=== PATIENT | male | born 1960 ===

== ENCOUNTER 2019-09-02 01:56 | Inpatient (IN) ==
[2019-09-02] MEDS ORDERED: ONDANSETRON 4 MG/2 ML VIAL IV PRN (08:49)
[2019-09-02] MEDS ORDERED: DOCUSATE SODIUM 100 MG CAPSULE PO PRN (08:49)
[2019-09-02] MEDS ORDERED: ACETAMINOPHEN 325 MG TABLET PO PRN (08:49)
[2019-09-02] MEDS ORDERED: GLUCAGON 1 MG VIAL IM PRN (08:49)
[2019-09-02] MEDS ORDERED: DEXTROSE 10% 250 ML BAG IV PRN (08:49)
[2019-09-02 10:05] LABS: Thyroid Stimulating Hormone 0.758 uIU/ml (0.358-3.74)
[2019-09-02] MEDS: PANTOPRAZOLE 40 MG TABLET PO SCH (10:21)
[2019-09-02] MEDS: ENOXAPARIN 40 MG/0.4 ML SYRINGE SUBCUT SCH (10:21)
[2019-09-02 11:31] LABS: Allen Test Positive
[2019-09-02 11:32] LABS: ABG Base Excess 0.5 MMOL/L (-2.5-2.5); ABG HCO3 24.7 MMOL/L (20-26); ABG Oxygen Saturation 92.7 % (95-100); ABG PCO2 38.4 MM HG (35-48); ABG PH 7.427 (7.35-7.45); ABG PO2 64.3 MM HG (80-95); ABG TCO2 25.9 MMOL/L (23-27)
[2019-09-02 11:42] LABS: Risk Ratio 6.22
[2019-09-02 12:15] LABS: Basophils % 0.4 % (0.0-0.8); Eosinophils # 0.1 10*3/uL (0.0-0.87); Eosinophils % 0.7 % (0.00-10.9); Hematocrit 39.3 VOL% (42.0-52.0); Hemoglobin 11.4 GM/DL (14.0-18.0); Immature Granulocytes % 0.6 %; Immature Granulocytes Absolute 0.06 #; Lymphocytes # 1.8 10*3/uL (1.4-4.0); Mean Corpuscular Volume 73.7 FL (87-102); Mean Platelet Volume 9.3 FL (9.6-12.0); Neutrophils % 69.3 % (38.7-73.9); Platelet Count 278 T/CUMM (130-400); Red Blood Count 5.33 MC/CUMM (3.8-5.5); Red Cell Distribution Width 16.3 % (9.3-17.3); White Blood Count 9.6 T/CUMM (4-12)
[2019-09-02 12:19] LABS: Bilirubin,Total 0.4 MG/DL (0.2-1.0); Calcium 8.1 MG/DL (8.5-10.1); Osmolality,Calculated 291.1 MOS/KG (273-304)
[2019-09-02 12:22] LABS: Troponin I 0.197 NG/ML (0.00-0.045)
[2019-09-02] MEDS: INSULIN LISPRO 100 UNIT/ML SUBCUT SCH ×3 (12:34→21:41)
[2019-09-02 15:43] LABS: Troponin I 0.184 NG/ML (0.00-0.045)
[2019-09-02] MEDS ORDERED: traZODone 50 MG TABLET PO PRN (16:04)
[2019-09-02] MEDS: SERTRALINE 100 MG TABLET PO SCH (17:03)
[2019-09-02] MEDS: ASPIRIN 325 MG TABLET PO SCH (17:03)
[2019-09-02 18:51] LABS: Troponin I 0.179 NG/ML (0.00-0.045)
[2019-09-02] MEDS ORDERED: FUROSEMIDE 40 MG/4 ML VIAL IV ONE ×2 (20:59→21:21)
[2019-09-02] MEDS ORDERED: FUROSEMIDE 40 MG/4 ML VIAL ONE (20:59)
[2019-09-02] MEDS ORDERED: MORPHINE 4 MG/1 ML VIAL IV ONE (21:19)
[2019-09-02] MEDS: FUROSEMIDE 40 MG TABLET PO SCH (21:25)
[2019-09-02] MEDS: ATORVASTATIN 80 MG TABLET PO SCH (21:36)
[2019-09-02] MEDS: carvediloL 25 MG TABLET PO SCH (21:41)
[2019-09-02 21:51] LABS: Calcium 8.9 MG/DL (8.5-10.1); Osmolality,Calculated 288.4 MOS/KG (273-304)
[2019-09-03 06:24] LABS: Calcium 8.6 MG/DL (8.5-10.1); Osmolality,Calculated 287.4 MOS/KG (273-304)
[2019-09-03 07:04] LABS: Basophils % 0.3 % (0.0-0.8); Eosinophils # 0.1 10*3/uL (0.0-0.87); Eosinophils % 0.9 % (0.00-10.9); Hematocrit 39.7 VOL% (42.0-52.0); Hemoglobin 11.7 GM/DL (14.0-18.0); Immature Granulocytes % 0.3 %; Immature Granulocytes Absolute 0.02 #; Lymphocytes # 1.2 10*3/uL (1.4-4.0); Lymphocytes % 18.1 % (21.2-54.2); Mean Corpuscular HGB Conc 29.5 GM/DL (32-36); Mean Corpuscular Volume 72.8 FL (87-102); Mean Platelet Volume 10.1 FL (9.6-12.0); Monocytes % 9.6 % (1.7-12.7); Neutrophils % 70.8 % (38.7-73.9); Platelet Count 291 T/CUMM (130-400); Red Blood Count 5.45 MC/CUMM (3.8-5.5); Red Cell Distribution Width 16.3 % (9.3-17.3); White Blood Count 6.6 T/CUMM (4-12)
[2019-09-03] MEDS: INSULIN LISPRO 100 UNIT/ML SUBCUT SCH ×4 (08:31→23:09)
[2019-09-03] MEDS: SERTRALINE 100 MG TABLET PO SCH (08:53)
[2019-09-03] MEDS: carvediloL 25 MG TABLET PO SCH ×2 (08:54→23:08)
[2019-09-03] MEDS: ASPIRIN 325 MG TABLET PO SCH (08:54)
[2019-09-03] MEDS: PANTOPRAZOLE 40 MG TABLET PO SCH (08:54)
[2019-09-03] MEDS: amLODIPine 10 MG TABLET PO SCH (08:54)
[2019-09-03] MEDS: LISINOPRIL 20 MG TABLET PO SCH (08:54)
[2019-09-03] MEDS: FUROSEMIDE 40 MG TABLET PO SCH ×2 (08:54→23:08)
[2019-09-03] MEDS: ENOXAPARIN 40 MG/0.4 ML SYRINGE SUBCUT SCH (08:55)
[2019-09-03] MEDS ORDERED: diphenhydrAMINE CAP 25 MG CAPSULE PO ONE (10:12)
[2019-09-03] MEDS ORDERED: POTASSIUM CHLORIDE RIDER 10 MEQ in PREMIX 1 EACH IV PRN (10:12)
[2019-09-03] MEDS ORDERED: DIAZEPAM 5 MG TABLET PO ONE (10:12)
[2019-09-03] MEDS ORDERED: MAGNESIUM SULF RIDER 2 GM in PREMIX 1 EACH IV PRN (10:12)
[2019-09-03] MEDS ORDERED: VERAPAMIL 5 MG/2 ML VIAL ONE (10:55)
[2019-09-03] MEDS ORDERED: HEPARIN/NACL 0.9% 2 UNITS/ML 1,000 ML IV ONE (10:55)
[2019-09-03] MEDS ORDERED: LIDOCAINE 1% 20 ML VIAL ONE (10:55)
[2019-09-03] MEDS ORDERED: NITROGLYCERIN DRIP 50 MG/250 ML BOTTLE IV ONE (10:55)
[2019-09-03] MEDS ORDERED: MIDAZOLAM 2 MG/2 ML VIAL ONE (11:17)
[2019-09-03] MEDS ORDERED: HYDROmorphone 2 MG/1 ML VIAL ONE (11:17)
[2019-09-03] MEDS: ASCORBIC ACID 500 MG TABLET PO SCH ×2 (12:04→23:08)
[2019-09-03] MEDS: SPIRONOLACTONE 50 MG TABLET PO SCH (12:04)
[2019-09-03] MEDS: ALBUTEROL/IPRATROPIUM 3 ML NEB RESP TX SCH ×2 (14:07→21:04)
[2019-09-03] MEDS ORDERED: LEVOFLOXACIN INJ 750 MG in PREMIX 1 EACH IV SCH (17:00)
[2019-09-03] MEDS: ATORVASTATIN 80 MG TABLET PO SCH (23:08)
[2019-09-04] MEDS: ALBUTEROL/IPRATROPIUM 3 ML NEB RESP TX SCH ×2 (03:00→08:48)
[2019-09-04 06:01] LABS: Calcium 8.9 MG/DL (8.5-10.1)
[2019-09-04 06:16] LABS: Basophils % 0.7 % (0.0-0.8); Eosinophils # 0.1 10*3/uL (0.0-0.87); Eosinophils % 1.5 % (0.00-10.9); Hematocrit 39.6 VOL% (42.0-52.0); Hemoglobin 11.7 GM/DL (14.0-18.0); Immature Granulocytes % 0.3 %; Immature Granulocytes Absolute 0.02 #; Lymphocytes # 1.5 10*3/uL (1.4-4.0); Lymphocytes % 24.5 % (21.2-54.2); Mean Corpuscular HGB Conc 29.5 GM/DL (32-36); Mean Corpuscular Volume 72.5 FL (87-102); Mean Platelet Volume 9.8 FL (9.6-12.0); Monocytes % 10.5 % (1.7-12.7); Neutrophils % 62.5 % (38.7-73.9); Platelet Count 280 T/CUMM (130-400); Red Blood Count 5.46 MC/CUMM (3.8-5.5); Red Cell Distribution Width 16.1 % (9.3-17.3)
[2019-09-04 08:18] VITALS: BP 132/82
[2019-09-04] MEDS: INSULIN LISPRO 100 UNIT/ML SUBCUT SCH (08:25)
[2019-09-04] MEDS: LISINOPRIL 20 MG TABLET PO SCH (08:32)
[2019-09-04] MEDS: ASPIRIN 325 MG TABLET PO SCH (08:32)
[2019-09-04] MEDS: ASCORBIC ACID 500 MG TABLET PO SCH (08:32)
[2019-09-04] MEDS: carvediloL 25 MG TABLET PO SCH (08:33)
[2019-09-04] MEDS: FUROSEMIDE 40 MG TABLET PO SCH (08:33)
[2019-09-04] MEDS: amLODIPine 10 MG TABLET PO SCH (08:33)
[2019-09-04] MEDS: SPIRONOLACTONE 50 MG TABLET PO SCH (08:33)
[2019-09-04] MEDS: PANTOPRAZOLE 40 MG TABLET PO SCH (08:33)
[2019-09-04] MEDS: SERTRALINE 100 MG TABLET PO SCH (08:33)
[2019-09-04] MEDS: ENOXAPARIN 40 MG/0.4 ML SYRINGE SUBCUT SCH (09:08)
[2019-09-09] MEDS ORDERED: ERGOCALCIFEROL 50,000 UNIT CAPSULE PO SCH (09:00)
== END 2019-09-04 12:15 | DRG 286 ==
LOC: SUATTDRO 06:11 → N.TELEN 06:11
PROVIDERS: ADMIT Internal Medicine; ATTEND Hospitalist
PROC: CLCCHCL (ICD-10-PCS; 2019-09-03 12:45)